=== PATIENT | female | born 1995 | race Caucasian/White ===

== ENCOUNTER 2017-09-15 12:12 | Emergency (ER) | payer OTHER ==
--- OUTSIDE RECORDS SUMMARY | 2017-09-15 12:15 | XMS REPORT | Clinical Summary ---
:1995 Author Organization [facility] Address [address] [place] [address] Care Team Providers Name Role Phone Darian Osborne MD Primary Care Provider Allergies Active Allergy Reactions Severity Noted Date Comments Midazolam 04/26/2016 Current Medications Prescription Sig. Disp. Refills Start Date End Date Status aspirin (ECOTRIN) 81 MG Take 81 mg by Active enteric coated tablet mouth daily. ethosuximide (ZARONTIN) 250 Take 250 mg by Active mg capsule mouth 2 (two) times a day. lisdexamfetamine 10 mg Take by mouth. Active capsule Active Problems Not on file Social History Tobacco Use Types Packs/Day Years Used Date Never Smoker Alcohol Use Drinks/Week oz/Week Comments No Sex Assigned at Date Recorded Not on file Last Filed Vital Signs Not on file Plan of Treatment Health Maintenance Due Date Last Done Comments CHLAMYDIA SCREENING 2013 INFLUENZA VACCINE 09/30/2017 Results Not on fileafter 09/14/2016 Insurance Payer Benefit Plan / Group Subscriber ID Type Phone Address AETNA AETNA PPO OPEN CHOICE xxxxxxxxxx PPO Home: Eren PATEL [phone] [place], [place] [id number]
[2017-09-15] MEDS ORDERED: IBUPROFEN 200 MG TAB PO ONE (12:55)
[2017-09-15] MEDS ORDERED: IBUPROFEN 400 MG TAB ONE (12:55)
--- NOTE | 2017-09-15 13:15 | ER ---
Nurse's Notes [facility] Name: Stephanie Deleon Age: 21 yrs Sex: Female : 1995 Arrival Date: 09/15/2017 Time: 12:17 Bed 18 Private MD: Diagnosis: Nondisplaced fracture of fifth metatarsal bone, right foot Presentation: 09/15 12:21 Presenting complaint: Patient states: i fell at work and hurt my R foot about an hour hj ago, pain is 10/10; denies tingling or numbness; denies hitting head or LOC;. Transition of care: patient was not received from another setting of care. Onset of symptoms was September 15, 2017. Risk Assessment: Do you want to hurt yourself or someone else? Patient reports no desire to harm self or others. Initial Sepsis Screen: Does the patient meet any 2 criteria? No. Patient's initial sepsis screen is negative. Does the patient have a suspected source of infection? No. Patient's initial sepsis screen is negative. Care prior to arrival: None. 12:21 Method Of Arrival: Ambulatory 12:21 Acuity: KELVIN 4 Triage Assessment: 12:24 General: Appears in no apparent distress. uncomfortable, Behavior is calm, cooperative, hj appropriate for age. Pain: Complains of pain in dorsum of right foot. 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 - Social history:: Smoking status: Patient/guardian denies using tobacco, Patient/guardian denies using alcohol. - Ebola Screening: : Patient negative for fever greater than or equal to 101.5 degrees Fahrenheit, and additional compatible Ebola Virus Disease symptoms Patient denies exposure to infectious person Patient denies travel to an Ebola-affected area in the 21 days before illness onset. Screenin:24 Abuse screen: Denies threats or abuse. Denies injuries from another. Nutritional hj screening: No deficits noted. Tuberculosis screening: No symptoms or risk factors identified. Fall Risk None identified. Assessment: 12:35 General: Appears comfortable, Behavior is calm, cooperative. Pain: Complains of pain in aa5 dorsum of right foot Pain does not radiate. Pain currently is 10 out of 10 on a pain scale. Quality of pain is described as aching, throbbing, Is continuous, Aggravated by increased activity. Neuro: Level of Consciousness is awake, alert, obeys commands, Oriented to person, place, time, situation. Cardiovascular: Heart tones S1 S2 present Rhythm is regular. Respiratory: Airway is patent Respiratory effort is even, unlabored, Respiratory pattern is regular, symmetrical. GI: No signs and/or symptoms were reported involving the gastrointestinal system. : No signs and/or symptoms were reported regarding the genitourinary system. EENT: No signs and/or symptoms were reported regarding the EENT system. Derm: Skin is pink, warm \T\ dry. Musculoskeletal: Range of motion: intact in all extremities, Mild swelling noted to dorsum of right foot. 14:20 Reassessment: Patient is alert, oriented x 3, equal unlabored respirations, skin aa5 warm/dry/pink. Vital Signs: 12:25 BP 113 / 75; Pulse 103; Resp 18; Temp 97.9(O); Pulse Ox 98% on R/A; Weight 70.31 kg; hj Height 5 ft. 3 in. (160.02 cm); Pain 10/10; 12:25 Body Mass Index 27.46 (70.31 kg, 160.02 cm) ED Course: 12:17 Patient arrived in ED. mr 12:22 Triage completed. hj 12:24 Arm band placed on left wrist. hj 12:25 Patient has correct armband on for positive identification. Bed in low position. Call light in reach. Side rails up X 1. Adult w/ patient. 12:29 Erin Bolanos FNP-C [facility]. snw 12:29 Cabrera De Santiago MD is Attending Physician. snw 12:[address], MILAGROS is Primary Nurse. aa5 12:50 No provider procedures requiring assistance completed. aa5 13:05 Foot Right 3 View XRAY In Process Unspecified. EDMS 13:14 Tawanda Gaitan MD is Referral Physician. snw 14:21 Orthoglass splint: Posterior short lleg splint applied on right leg. CRUTCHES AND 5 CRUTCH TRAINING. 14:24 Ice pack to injury. Cool cloth applied. [facility] 14:30 Patient did not have IV access during this emergency room visit. aa5 Administered Medications: 12:55 Drug: Motrin 600 mg Route: PO; aa5 14:20 Follow up: Response: No adverse reaction aa5 Outcome: 13:15 Discharge ordered by MD. benites 14:30 Discharged to home ambulatory, with crutches, with family. aa5 14:30 Condition: stable 14:30 Discharge instructions given to patient, Instructed on discharge instructions, follow up and referral plans. medication usage, Demonstrated understanding of instructions, follow-up care, medications, Prescriptions given X 2. 14:49 Patient left the ED. aa5 Signatures: Dispatcher [employer] EDMS Erin Bolanos, BITAC HOG CONFINEMENT SYSTEM MANAGER-Carmen Shields Audri, RN MILAGROS [facility] José Luis Bruce RN RN hj Martinez, Maria [facility] Corrections: (The following items were deleted from the chart) 12:27 12:25 Pulse 103bpm; Resp 18bpm; Pulse Ox 98% RA; Temp 97.9F Oral; 70.31 kg; Height 5 hj ft. 3 in.; BMI: 27.4; Pain 10/10; hj 12:37 12:21 Presenting complaint: Patient states: i fell at work and hurt my R foot about an hj hour ago, pain is 10/10; denies tingling or numbness; hj
--- NOTE | 2017-09-15 13:16 | EDPHYS ---
Physician Documentation [facility] Name: Stephanie Deleon Age: 21 yrs Sex: Female : 1995 Arrival Date: 09/15/2017 Time: 12:17 Bed 18 Private MD: ED Physician Cabrera De Santiago HPI: 09/15 13:27 This 21 yrs old Female presents to ER via Ambulatory with complaints of Foot snw Pain. 13:27 The patient presents with a contusion, pain, swelling, tenderness. The complaints snw affect the lateral aspect of right foot. Context: The problem was sustained at work, resulted from a mis-step, pool noodle, the patient is not able to bear weight, must have assistance, Problem is a result from a previous injury: No. Onset: The symptoms/episode began/occurred suddenly, just prior to arrival. Associated signs and symptoms: Pertinent positives: swelling, of the dorsum of right foot. Severity of symptoms: At their worst the symptoms were moderate, severe. The patient has not experienced similar symptoms in the past. It is unknown whether or not the patient has recently seen a physician. 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 - Social history:: Smoking status: Patient/guardian denies using tobacco, Patient/guardian denies using alcohol. - Ebola Screening: : Patient negative for fever greater than or equal to 101.5 degrees Fahrenheit, and additional compatible Ebola Virus Disease symptoms Patient denies exposure to infectious person Patient denies travel to an Ebola-affected area in the 21 days before illness onset. ROS: 13:25 Constitutional: Negative for fever, chills, and weight loss, Eyes: Negative for injury, snw pain, redness, and discharge, ENT: Negative for injury, pain, and discharge, Neck: Negative for injury, pain, and swelling, Cardiovascular: Negative for chest pain, palpitations, and edema, Respiratory: Negative for shortness of breath, cough, wheezing, and pleuritic chest pain, Abdomen/GI: Negative for abdominal pain, nausea, vomiting, diarrhea, and constipation, Back: Negative for injury and pain, : Negative for injury, bleeding, discharge, and swelling, Skin: Negative for injury, rash, and discoloration, Neuro: Negative for headache, weakness, numbness, tingling, and seizure. 13:25 MS/extremity: Positive for injury or acute deformity, contusion, ecchymosis, pain, swelling, of the dorsum of right foot. Exam: 13:23 Constitutional: This is a well developed, well nourished patient who is awake, alert, snw and in no acute distress. Head/Face: Normocephalic, atraumatic. Eyes: Pupils equal round and reactive to light, extra-ocular motions intact. Lids and lashes normal. Conjunctiva and sclera are non-icteric and not injected. Cornea within normal limits. Periorbital areas with no swelling, redness, or edema. ENT: Nares patent. No nasal discharge, no septal abnormalities noted. Tympanic membranes are normal and external auditory canals are clear. Oropharynx with no redness, swelling, or masses, exudates, or evidence of obstruction, uvula midline. Mucous membranes moist. Neck: Trachea midline, no thyromegaly or masses palpated, and no cervical lymphadenopathy. Supple, full range of motion without nuchal rigidity, or vertebral point tenderness. No Meningismus. Chest/axilla: Normal chest wall appearance and motion. Nontender with no deformity. No lesions are appreciated. Cardiovascular: Tachycardic rate and rhythm with a normal S1 and S2. No gallops, murmurs, or rubs. Normal PMI, no JVD. No pulse deficits. Respiratory: Lungs have equal breath sounds bilaterally, clear to auscultation and percussion. No rales, rhonchi or wheezes noted. No increased work of breathing, no retractions or nasal flaring. Abdomen/GI: Soft, non-tender, with normal bowel sounds. No distension or tympany. No guarding or rebound. No evidence of tenderness throughout. Back: No spinal tenderness. No costovertebral tenderness. Full range of motion. Skin: Warm, dry with normal turgor. Normal color with no rashes, no lesions, and no evidence of cellulitis. Neuro: Awake and alert, GCS 15, oriented to person, place, time, and situation. Cranial nerves II-XII grossly intact. Motor strength 5/5 in all extremities. Sensory grossly intact. Cerebellar exam normal. Normal gait. Psych: Awake, alert, with orientation to person, place and time. Behavior, mood, and affect are within normal limits. 13:23 Musculoskeletal/extremity: Extremities: grossly normal except: noted in the dorsum of right foot: contusion, ecchymosis, pain, swelling, tenderness, ROM: no acute changes, Circulation is intact in all extremities. Sensation intact. Compartment Syndrome exam of affected extremity: is normal. Weight bearing: can bear weight with assistance only, uses crutches. Vital Signs: 12:25 BP 113 / 75; Pulse 103; Resp 18; Temp 97.9(O); Pulse Ox 98% on R/A; Weight 70.31 kg; hj Height 5 ft. 3 in. (160.02 cm); Pain 10/10; 12:25 Body Mass Index 27.46 (70.31 kg, 160.02 cm) MDM: 12:31 Patient medically screened. [facility] 13:26 Data reviewed: vital signs, nurses notes. Data interpreted: Pulse oximetry: on room air snw is 98 %. Interpretation: normal. Counseling: I had a detailed discussion with the patient and/or guardian regarding: the historical points, exam findings, and any diagnostic results supporting the discharge/admit diagnosis, radiology results, the need for outpatient follow up, to return to the emergency department if symptoms worsen or persist or if there are any questions or concerns that arise at home. Special discussion: Based on the history and exam findings, there is no indication for further emergent testing or inpatient evaluation. I discussed with the patient/guardian the need to see the orthopedic surgeon for further evaluation of the symptoms. 09/15 12:29 Order name: Foot Right 3 View XRAY; Complete Time: 14:12 snw 09/15 13:13 Order name: Posterior Orthoglass Ankle Splint; Complete Time: 14:09 snw 09/15 13:13 Order name: Crutch Training; Complete Time: 14:14 snw Administered Medications: 12:55 Drug: Motrin 600 mg Route: PO; aa5 14:20 Follow up: Response: No adverse reaction aa5 Disposition: 09/15/17 13:15 Discharged to Home. Impression: Nondisplaced fracture of fifth metatarsal bone, right foot. - Condition is Stable. - Discharge Instructions: Elastic Bandage and RICE, Cast or Splint Care, Fall Prevention and Home Safety, Metatarsal Fracture, Undisplaced, Cryotherapy. - Prescriptions for Tylenol- Codeine #3 300-30 mg Oral Tablet - take 2 tablets by ORAL route every 6 hours As needed; 16 tablet. Diclofenac Sodium 75 mg Oral Tablet Sustained Release - take 1 tablet by ORAL route 2 times per day; 30 tablet. - Work release form, Medication Reconciliation Form, Thank You Letter, Antibiotic Education, Prescription Opioid Use form. - Follow up: Tawanda Gaitan MD; When: 1 - 2 days; Reason: Recheck today's complaints, Continuance of care, Re-evaluation by your physician. Addendum: 09/17/2017 06:19 Co-signature as Attending Physician, Cabrera De Santiago MD. g s Signatures: Dispatcher [employer] EDMS Carl Castle MD MD cha Therrien, Shelly, FLOOR ASSOCIATE-C FLOOR ASSOCIATE-Csnw Yamila Way RN RN aa5 José Luis Bruce RN RN hj Cabrera De Santiago MD MD Corrections: (The following items were deleted from the chart) 09/15 13:26 13:23 Constitutional: This is a well developed, well nourished patient who is awake, snw alert, and in no acute distress. Head/Face: Normocephalic, atraumatic. Eyes: Pupils equal round and reactive to light, extra-ocular motions intact. Lids and lashes normal. Conjunctiva and sclera are non-icteric and not injected. Cornea within normal limits. Periorbital areas with no swelling, redness, or edema. ENT: Nares patent. No nasal discharge, no septal abnormalities noted. Tympanic membranes are normal and external auditory canals are clear. Oropharynx with no redness, swelling, or masses, exudates, or evidence of obstruction, uvula midline. Mucous membranes moist. Neck: Trachea midline, no thyromegaly or masses palpated, and no cervical lymphadenopathy. Supple, full range of motion without nuchal rigidity, or vertebral point tenderness. No Meningismus. Chest/axilla: Normal chest wall appearance and motion. Nontender with no deformity. No lesions are appreciated. Cardiovascular: Regular rate and rhythm with a normal S1 and S2. No gallops, murmurs, or rubs. Normal PMI, no JVD. No pulse deficits. Respiratory: Lungs have equal breath sounds bilaterally, clear to auscultation and percussion. No rales, rhonchi or wheezes noted. No increased work of breathing, no retractions or nasal flaring. Abdomen/GI: Soft, non-tender, with normal bowel sounds. No distension or tympany. No guarding or rebound. No evidence of tenderness throughout. Back: No spinal tenderness. No costovertebral tenderness. Full range of motion. Skin: Warm, dry with normal turgor. Normal color with no rashes, no lesions, and no evidence of cellulitis. Neuro: Awake and alert, GCS 15, oriented to person, place, time, and situation. Cranial nerves II-XII grossly intact. Motor strength 5/5 in all extremities. Sensory grossly intact. Cerebellar exam normal. Normal gait. Psych: Awake, alert, with orientation to person, place and time. Behavior, mood, and affect are within normal limits. snw 14:49 13:15 09/15/2017 13:15 Discharged to Home. Impression: Nondisplaced fracture of fifth aa5 metatarsal bone, right foot. Condition is Stable. Forms are Medication Reconciliation Form, Thank You Letter, Antibiotic Education, Prescription Opioid Use. Follow up: Tawanda Gaitan; When: 1 - 2 days; Reason: Recheck today's complaints, Continuance of care, Re-evaluation by your physician. snw
--- NOTE | 2017-09-15 14:10 | RAD REPORT ---
EXAM DESCRIPTION: RAD - Foot Right 3 View - 09/15/2017 1:05 pm CLINICAL HISTORY: Fall at work, foot pain COMPARISON: None. FINDINGS: Transverse fracture is present at the base of the fifth metatarsal. No distraction or angu lation deformity. No other acute bone or joint finding. No air or foreign body in the soft tissues. IMPRESSION: Transverse fracture fifth metatarsal base. No distraction or angulation.
== END 2017-09-15 14:49 | disposition home or self-care (01) ==
LOC: ER 12:12
DX: I10 Essential (primary) hypertension (principal); Z00.00 Encounter for general adult medical examination without abnormal findings
CPT/HCPCS: 99284

== ENCOUNTER 2023-07-30 18:22 | Emergency (ER) | payer OTHER, BC ==
[2023-07-30] MEDS ORDERED: IBUPROFEN 200 MG TAB PO ONE (19:29)
--- NOTE | 2023-07-30 20:20 | RAD REPORT ---
EXAM DESCRIPTION: RAD - Foot Left 3 View - 07/30/2023 8:13 pm CLINICAL HISTORY: PAIN COMPARISON: <Comparisons> FINDINGS: No acute fracture or dislocation seen.
--- NOTE | 2023-07-30 21:29 | ER ---
Nurse's Notes [facility] Name: Stephanie Deleon Age: 27 yrs Sex: Female : 1995 Arrival Date: 07/30/2023 Time: 18:22 Bed DX4 Private MD: Diagnosis: Other sprain of left foot Presentation: 07/29 19:25 Chief complaint: Patient states: Left foot pain onset today. Pt states that she stepped cm10 wrong and felt something pop. Pt reports difficulty flexing her foot. Pt reports some swelling to foot. Pt recently had fracture to left foot. Coronavirus screen: Client denies travel out of the [place] in the last 14 days. At this time, the client does not indicate any symptoms associated with coronavirus-19. Ebola Screen: Patient denies travel to an Ebola-affected area in the 21 days before illness onset. No symptoms or risks identified at this time. Initial Sepsis Screen: Does the patient meet any 2 criteria? HR > 90 bpm. Does the patient have a suspected source of infection? No. Patient's initial sepsis screen is negative. Risk Assessment: Do you want to hurt yourself or someone else? Patient reports no desire to harm self or others. Onset of symptoms was July 30, 2023. 19:25 Method Of Arrival: Ambulatory cm10 19:25 Acuity: KELVIN 4 cm10 Triage Assessment: 19:27 General: Appears in no apparent distress. comfortable, Behavior is calm, cooperative. cm10 Pain: Complains of pain in left foot Pain radiates to left leg. Neuro: No deficits noted. Level of Consciousness is awake, alert, obeys commands, Oriented to person, place, time, situation. Respiratory: No deficits noted. Airway is patent Respiratory effort is even, unlabored, Respiratory pattern is regular, symmetrical. Musculoskeletal: Swelling present in left foot Reports pain in left foot. Historical: - Allergies: 19:26 Midazolam; cm10 19:26 Versed; cm10 - PMHx: 19:26 ADD/ADHD; dyslexia; tetralogy of falott; cm10 - Immunization history:: Adult Immunizations up to date. - Infectious Disease History:: Denies. - Social history:: Smoking status: Patient denies any tobacco usage or history of. Screenin:32 [facility] ED Fall Risk Assessment (Adult) History of falling in the last 3 months, cm10 including since admission No falls in past 3 months (0 pts) Confusion or Disorientation No (0 pts) Intoxicated or Sedated No (0 pts) Impaired Gait No (0 pts) Mobility Assist Device Used No (0 pt) Altered Elimination No (0 pt) Score/Fall Risk Level 0 - 2 = Low Risk Oriented to surroundings, Maintained a safe environment, Hourly rounding (assess needs \T\ fall precautionary measures) done. Abuse screen: Denies threats or abuse. Denies injuries from another. Nutritional screening: No deficits noted. Tuberculosis screening: No symptoms or risk factors identified. Assessment: 21:30 General: Appears in no apparent distress. Behavior is calm, cooperative. kb3 21:30 Pain: Complains of pain in dorsum of left foot Pain radiates to left carvajal Pain kb3 currently is 7 out of 10 on a pain scale. Vital Signs: 19:25 BP 113 / 77; Pulse 104; Resp 18; Temp 97.4; Pulse Ox 100% ; Weight 71.21 kg; Height 5 cm10 ft. 4 in. ; Pain 9/10; 21:30 BP 110 / 71; Pulse 78; Resp 18; Pulse Ox 100% ; kb3 19:25 Body Mass Index 26.95 (71.21 kg, 162.56 cm) cm10 19:25 Pain Scale: Adult cm10 ED Course: 18:24 Patient arrived in ED. im 19:26 Triage completed. cm10 19:27 Arm band placed on Patient placed in waiting room. cm10 19:28 Jane Grant PA-C is PHCP. sb4 19:28 Margot Mireles MD is Attending Physician. sb4 19:32 Patient has correct armband on for positive identification. Provided Education on: ER cm10 process and procedures.. 20:15 Foot Left 3 View XRAY In Process Unspecified. EDMS 21:30 No provider procedures requiring assistance completed. Patient did not have IV access kb3 during this emergency room visit. Administered Medications: 19:31 Drug: Ibuprofen PO 600 mg PO once Route: PO; cm10 22:25 Follow up: Response: No adverse reaction; Pain is decreased kb3 Medication: 19:32 VIS not applicable for this client. cm10 Outcome: 21:29 Discharge ordered by . sb4 21:45 Discharged to home ambulatory, kb3 21:45 Condition: stable 21:45 Discharge instructions given to patient, Instructed on discharge instructions, follow up and referral plans. medication usage, Demonstrated understanding of instructions, follow-up care, medications, 22:25 Patient left the ED. kb3 Signatures: Dispatcher [employer] EDMS Jolene Schuster, RN RN kb3 Jane Grant, PADari PADari sb4 Cecy Lovelace Clarissa RN RN cm10 Corrections: (The following items were deleted from the chart) 22:24 22:22 General: Appears in no apparent distress. Behavior is calm, cooperative, kb3 kb3
--- NOTE | 2023-07-30 21:29 | EDPHYS ---
Physician Documentation [facility] Name: Stephanie Deleon Age: 27 yrs Sex: Female : 1995 Arrival Date: 07/30/2023 Time: 18:22 Bed DX4 Private MD: ED Physician Margot Mireles HPI: 07/30 00:22 This 27 yrs old Female presents to ER via Ambulatory with complaints of Foot Injury. sb4 00:22 patient states that she fractured her foot about 3 weeks ago and was just cleared by sb4 her doctor yesterday. she returned to work today, took a weird step, and felt a pop. she is complaining of pain in the same area. no bruising or significant swelling noted. she is able to bear weight. Historical: - Allergies: 07/29 19:26 Midazolam; cm10 19:26 Versed; cm10 - PMHx: 19:26 ADD/ADHD; dyslexia; tetralogy of falott; cm10 - Immunization history:: Adult Immunizations up to date. - Infectious Disease History:: Denies. - Social history:: Smoking status: Patient denies any tobacco usage or history of. ROS: 07/30 00:22 Constitutional: Negative for fever, chills, and weight loss, sb4 MS/extremity: Positive for injury or acute deformity, pain, of the left foot, All other systems are negative, Exam: 00:22 Constitutional: This is a well developed, well nourished patient who is awake, alert, sb4 and in no acute distress. Head/Face: Normocephalic, atraumatic. Eyes: Extra-ocular motions intact. Periorbital areas with no swelling, redness, or edema. ENT: Mucous membranes moist. 00:22 Musculoskeletal/extremity: ROM: limited active range of motion due to pain, limited passive range of motion due to pain, Circulation is intact in all extremities. Pulses: are normal with no appreciated deficits, Perfusion: the extremity is normally perfused throughout, Sensation intact. Vital Signs: 07/29 19:25 BP 113 / 77; Pulse 104; Resp 18; Temp 97.4; Pulse Ox 100% ; Weight 71.21 kg; Height 5 cm10 ft. 4 in. ; Pain 9/10; 21:30 BP 110 / 71; Pulse 78; Resp 18; Pulse Ox 100% ; kb3 19:25 Body Mass Index 26.95 (71.21 kg, 162.56 cm) cm10 19:25 Pain Scale: Adult cm10 MDM: 19:28 Patient medically screened. sb4 07/30 00:22 Data reviewed: vital signs, nurses notes, radiologic studies, and as a result, I will sb4 discharge patient. Counseling: I had a detailed discussion with the patient and/or guardian regarding the historical points, exam findings, and any diagnostic results supporting the discharge/admit diagnosis, radiology results, to return to the emergency department if symptoms worsen or persist or if there are any questions or concerns that arise at home. ED course: advised patient to rest foot, wear her walking boot for the next few weeks until her pain improves. 07/29 19:28 Order name: Foot Left 3 View XRAY; Complete Time: 20:21 cm10 Administered Medications: 07/29 19:31 Drug: Ibuprofen PO 600 mg PO once Route: PO; cm10 22:25 Follow up: Response: No adverse reaction; Pain is decreased kb3 Disposition Summary: 07/30/23 21:29 Discharge Ordered Notes: Location: Home sb4 Problem: new sb4 Symptoms: are unchanged sb4 Condition: Stable sb4 Diagnosis - Other sprain of left foot sb4 Followup: sb4 - With: Private Physician - When: As needed - Reason: Recheck today's complaints, Re-evaluation by your physician Discharge Instructions: - Discharge Summary Sheet sb4 - Foot Sprain sb4 Forms: - Work release form sb4 - Patient Portal Instructions sb4 - Leadership Thank You Letter sb4 Signatures: Dispatcher [employer] Jane Win PA-C PA-C sb4 Jenifer Maloney RN RN cm10 Jolene Schuster RN kb3 Corrections: (The following items were deleted from the chart) 19: 19:29 Foot Left 3 View+RAD.RAD.BRZ ordered. KATRINA HERNDON
[2023-07-30 23:24] VITALS: BP 110/71; TEMP 97.4; O2SAT 100
== END 2023-07-30 22:25 | disposition home or self-care (01) ==
LOC: ER 18:22
DX: S93.692A Other sprain of left foot, initial encounter (principal); X50.1XXA Overexertion from prolonged static or awkward postures, initial encounter; Y93.89 Activity, other specified; Y92.89 Other specified places as the place of occurrence of the external cause; Y99.0 Civilian activity done for income or pay; F90.9 Attention-deficit hyperactivity disorder, unspecified type; Q21.3 Tetralogy of Fallot; R48.0 Dyslexia and alexia; Z88.8 Allergy status to other drugs, medicaments and biological substances
CPT/HCPCS: 99283